=== PATIENT | male | born 1990 | race African-American/Black ===

== ENCOUNTER 2021-07-06 10:08 | Outpatient (CLI) | payer OTHER | END 2021-07-06 10:09 | disposition home or self-care (01) | LOC: BICRAD 10:08 | PROVIDERS: ATTEND Family Medicine | DX: M25.562 Pain in left knee (principal) ==

== ENCOUNTER 2021-07-12 10:35 | Outpatient (CLI) | payer OTHER | END 2021-07-12 10:36 | disposition home or self-care (01) | LOC: TBSIIMAG 10:35 | PROVIDERS: ATTEND Family Medicine | DX: M25.562 Pain in left knee (principal); M25.462 Effusion, left knee; M22.2X2 Patellofemoral disorders, left knee ==